=== PATIENT | female | born 1970 | race American Indian/Alaskan Native ===

== ENCOUNTER → 2019-08-08 | Outpatient (CLI) | payer OTHER | END | disposition home or self-care (01) | LOC: MAMO-SONO 12:49 → SONOGRAMA 08-09 09:15 → MAMO-SONO 08-09 09:45 | DX: Z12.31 Encounter for screening mammogram for malignant neoplasm of breast (principal); Z87.898 Personal history of other specified conditions; N60.11 Diffuse cystic mastopathy of right breast; N60.12 Diffuse cystic mastopathy of left breast; E04.1 Nontoxic single thyroid nodule ==

== ENCOUNTER 2019-08-20 10:45 | Outpatient (CLI) | payer OTHER | END 2019-08-20 12:51 | disposition home or self-care (01) | LOC: SONOGRAMA 10:45 | DX: E04.1 Nontoxic single thyroid nodule (principal) ==

== ENCOUNTER 2023-06-05 08:53 | Outpatient (CLI) | payer OTHER | END 2023-06-05 09:11 | disposition home or self-care (01) | LOC: MAMO-SONO 08:53 | PROVIDERS: ATTEND Obstetrics & Gynecology | DX: Z12.31 Encounter for screening mammogram for malignant neoplasm of breast (principal); N60.11 Diffuse cystic mastopathy of right breast; N60.12 Diffuse cystic mastopathy of left breast ==

== ENCOUNTER 2024-09-12 11:38 | Outpatient (CLI) | payer OTHER | END 2024-09-12 11:49 | disposition home or self-care (01) | LOC: MAMO-SONO 11:38 | PROVIDERS: ATTEND Obstetrics & Gynecology | DX: N60.11 Diffuse cystic mastopathy of right breast (principal); N60.12 Diffuse cystic mastopathy of left breast; Z12.31 Encounter for screening mammogram for malignant neoplasm of breast ==